=== PATIENT | male | born 1970 | race Caucasian/White ===

== ENCOUNTER 2023-08-20 16:14 | Emergency (ER) | payer BC, SELFPAY ==
[2023-08-20 16:19] VITALS: BP 154/100
--- NOTE | 2023-08-20 17:36 | ED.SKININJ ---
HPI-Injury
General
Chief Complaint: Skin Surface Trauma
Source: patient
Exam Limitations: none
Time Seen by Provider: 08/20/23 17:29
Nursing documentation reviewed up to this point in time: agreed with
History of Present Illness-Injury
Initial Injury comments:
53-year-old male with no significant past medical history states he lacerated his scalp as he was standing under the hatchback of his car that was automatically closing and it struck him in the head. No LOC, not anticoagulated. Denies headache or
neck pain unsure of last tetanus immunization.
Past History
Past History
ED Past Medical History: GERD
ED Past Surgical History: Other (Hernia repair, vasectomy)
Social History
Tobacco: Non-smoker
Alcohol: Occasional
Personal:
Living: with family
Employment: Employed
Review of Systems
Review of Systems
Allergies reviewed?: Yes
All Other Systems: ROS reviewed and negative except as documented in HPI and ROS
ABD/GI: Denies nausea
Musculoskeletal: Denies neck pain
Skin: Reports other (Cut top of head)
Neurological: Denies dizzy or headache
Skin Exam
Laceration
Left anterior scalp:
Length in cm: 2
Orientation: horizontal
Type of Laceration: simple
Any active bleeding?: no active bleeding
Phy Exam
Physical Exam
Physical Exam:
GENERAL: No acute distress. A&Ox3.
CONSTITUTIONAL: Afebrile.
EYES: clear, conjunctivae normal
Neck: Supple
RESPIRATORY: Regular respirations, nonlabored, lungs clear.
CARDIOVASCULAR: Regular rate and rhythm, no murmurs, no rubs.
MUSCULOSKELETAL: No spinal bony tenderness. Moves with ease. Well perfused.
SKIN: Warm, dry, pink
PSYCH: Normal mood and affect. Well kept, interactive and appropriate
NEUROLOGIC: Awake, alert and oriented. No focal neurological deficits. Ambulates well with steady gait.
Course
Orders/Labs/Results
Orders:
Orders
08/20/23 17:31
Tetanus/Diphth/Acelpertussis [Adacel] 0.5 ml IM .ONCE ONE
Vital Signs
Initial and Last Documented VS:
Initial Vital Signs
Temp Pulse Resp BP Pulse Ox
98.1 F 85 16 154/100 99
08/20/23 16:19 08/20/23 16:19 08/20/23 16:19 08/20/23 16:19 08/20/23 16:19
Last Documented Vital Signs
Temp Pulse Resp BP Pulse Ox
98.1 F 69 16 116/95 98
08/20/23 16:19 08/20/23 17:55 08/20/23 17:55 08/20/23 17:55 08/20/23 17:55
Procedures
Laceration Closure
Left anterior scalp:
Status of Wound: clean
Size of Wound in cm: 2
Description of Wound Edges: sharp
Preparation: cleaned with saline
Revision/Debridement: routine- no revision
Wound exploration: explored to base- no FB
Type of Closure: Dermabond-skin glue
MDM/Problems Addressed
MDM/Problems Addressed:
53-year-old male with no significant past medical history states he lacerated his scalp as he was standing under the hatchback of his car that was automatically closing and it struck him in the head. No LOC, not anticoagulated. Denies headache or
neck pain unsure of last tetanus immunization.
Tdap updated
Wound edges well-approximated with wound glue
No significant head injury
*Critical Care Note
Total Time (30-74mins, 75-104mins- exclusive of procedures): Not Applicable
ED Attending Note
-
Portions of this chart may have been created with voice recognition software.� Occasional wrong word or��sound alike� substitutions may have occurred due to the inherent limitations of voice recognition software.
Discharge Plan
Departure
Patient Disposition: Home (Routine Discharge)
Date of Disposition: 08/20/23
Time of Disposition: 17:34
Patient with high blood pressure during this ER visit?: No
Condition: Good
Discharge Problem:
Laceration of scalp
Instructions: Laceration Repair With Glue (DC)
Activity Restrictions/Additional Instructions:
As we discussed, it takes 1 week for this area to heal. You may briefly wet the area in the shower just do not rub it or apply any ointments. The glue will slough off within the next 2 weeks.
Interventions
Interventions:
*Risk Screen - Suicide Last Done: 08/20/23 17:54
*General Assessment Last Done: 08/20/23 16:19
*Neglect/Abuse Screening Last Done: 08/20/23 17:54
ED- Fall Risk Assessment Last Done: 08/20/23 17:57
*ED COVID-19 Vaccine History Last Done: 08/20/23 16:19
*Nursing Disposition Last Done: 08/20/23 17:58
ED-Skin Assessment Last Done: 08/20/23 17:57
Discharge Date and Time
Discharge Date/Time: 08/20/23 17:58
Print Language: [id number]
[2023-08-20] MEDS: ADACEL 0.5 ML IM (17:52)
[2023-08-20 17:55] VITALS: BP 116/95
== END 2023-08-20 17:58 | disposition home or self-care (01) ==
LOC: EMR 16:14
PROVIDERS: EMERGENCY PHYSICIAN Emergency Medicine
DX: S01.01XA Laceration without foreign body of scalp, initial encounter (principal); W22.8XXA Striking against or struck by other objects, initial encounter; Z23 Encounter for immunization
CPT/HCPCS: 99282; 12001; 90471; 90715